=== PATIENT | male | born 1955 ===

== ENCOUNTER 2021-04-22 16:08 | Inpatient (IN) ==
[2021-04-22 18:54] LABS: ABS Eosinophils 0.4 10^3/ul (0-0.6); ABS Monocytes 0.6 10^3/ul (0-0.8); Eosinophil % 6.3 %; Hematocrit 55 % (42-52); Hemoglobin 18.8 g/dL (14.0-18.0); Lymphocyte % 33.3 %; Mean Corpuscular HGB Conc 34 g/dL (31-36); Mean Corpuscular Hemoglobin 32 pg (27-31); Mean Corpuscular Volume 92 fL (80-94); Mean Platelet Volume 7.1 fL (7.4-10.4); Nucleated Red Blood Cells % 0.2; Platelet Count 223 10^3/uL (150-450); Red Blood Count 5.96 10^6 /uL (4.18-5.48); Red Cell Distribution Width 15 % (10-15); White Blood Count 6.1 10^3/uL (3.5-10.8)
[2021-04-22 18:59] LABS: Urine Appearance Clear; Urine Bilirubin Negative (Negative); Urine Blood Negative (Negative); Urine Color Yellow; Urine Glucose Negative (Negative); Urine Ketones Negative (Negative); Urine Nitrite Negative (Negative); Urine Protein Negative (Negative); Urine Specific Gravity 1.012 (1.002-1.030); Urine Urobilinogen Negative (Negative)
[2021-04-22 19:12] LABS: ALT 30 U/L (7-52); AST 19 U/L (13-39); Albumin 4.3 g/dL (3.2-5.2); Albumin/Globulin Ratio 1.5 (1-3); Alkaline Phosphatase 59 U/L (35-149); Anion Gap 11 mmol/L (2-11); Blood Urea Nitrogen 9 mg/dL (6-24); CO2 Carbon Dioxide 24 mmol/L (22-32); Calcium 8.7 mg/dL (8.6-10.3); Chloride 107 mmol/L (101-111); Globulin 2.8 g/dL (2-4); Glucose 96 mg/dL (70-100); Sodium 142 mmol/L (135-145); Total Protein 7.1 g/dL (6.4-8.9); eGFR CKD-EPI 103.3 (>60)
[2021-04-22 19:14] LABS: Urine Benzodiazepine Screen None Detected (None Detect); Urine Cannabinoids Screen Presumptive Positive (None Detect); Urine Opiates Screen None Detected (None Detect)
[2021-04-22 19:37] LABS: Acetaminophen < 15 mcg/mL; Alcohol, S 213 mg/dL (<13); Salicylate < 2.50 mg/dL (<30)
[2021-04-22 19:51] LABS: TSH Ultra Thyroid Stim Horm 1.28 mcIU/mL (0.34-5.60)
[2021-04-23] MEDS ORDERED: Al Hydrox/Mg Hydrox/Simet LIQ 30 ML UDC PO PRN (02:20)
[2021-04-23] MEDS ORDERED: Lorazepam PYXIS KEY PRN (02:22)
[2021-04-23] MEDS ORDERED: LORazepam IM 0-6 mg for WAM protocol IM SCH (03:00)
[2021-04-23] MEDS ORDERED: LORazepam PO 0-6 for WAM protocol PO SCH (03:00)
[2021-04-23] MEDS: Vitamin THERAPEUTIC TAB PO SCH (10:14)
[2021-04-24] MEDS: Vitamin THERAPEUTIC TAB PO SCH (09:08)
[2021-04-25] MEDS: Vitamin THERAPEUTIC TAB PO SCH (08:50)
[2021-04-26 07:44] LABS: HDL Cholesterol 58.6 mg/dL
[2021-04-26] MEDS: Vitamin THERAPEUTIC TAB PO SCH (08:48)
[2021-04-27 07:56] VITALS: BP 151/101
[2021-04-27] MEDS: Vitamin THERAPEUTIC TAB PO SCH (08:03)
== END 2021-04-27 11:37 | DRG 754 ==
LOC: ED 16:08 → BSU 04-23 01:00
PROVIDERS: ADMIT Psychiatry & Neurology Psychiatry; ATTEND Psychiatry & Neurology Psychiatry